=== PATIENT | male | born 1930 | race Caucasian/White ===

== ENCOUNTER 2018-02-09 11:20 | Emergency (ER) | payer OTHER, MEDICARE ==
[~2018-02-09] VITALS: Ht 170.2 cm; Wt 64.8 kg
[~2018-02-09 11:20] MED LIST: OMEPRAZOLE40 MG PO; SIMVASTATIN5 MG PO
[2018-02-09 11:56] LABS: HEMATOCRIT 37.3 % (38.0-50.0); HEMOGLOBIN 12.6 G/DL (12.5-16.6); MCH 30.2 PG (29.0-34.0); MCHC 33.8 G/DL (30.0-36.0); MCV 89.4 FL (86-99); PLATELET COUNT 363 K/uL (156-360); RBC DIS.WIDTH-CV 13.4 % (11.8-14.6); RBC DIS.WIDTH-SD 44.1 % (39-53); RED BLOOD COUNT 4.17 M/uL (4.00-5.50); WHITE BLOOD COUNT 10.9 K/uL (4.1-10.2)
[2018-02-09 12:45] LABS: TROP-I INTERPRETATION NEGATIVE; TROPONIN-I < 0.01 ng/mL (0.0-0.30)
[2018-02-09 12:59] LABS: CHLORIDE 103 MEQ/L (99-109); CREATININE 0.8 MG/DL (0.6-1.3); GFR ESTIMATE (CALCULATED) > 59 mL/min/ (58.99-99999); GLUCOSE 107 mg/dL (70-99); POTASSIUM 3.3 MEQ/L (3.7-5.4); SODIUM 142 MEQ/L (136-147); UREA NITROGEN (BUN) 18 mg/dL (9-23)
[2018-02-09 16:05] LABS: APPEARANCE SL.HAZY ((CLEAR)); BILIRUBIN NEGATIVE; BLOOD NEGATIVE; COLOR YELLOW ((YELLOW)); GLUCOSE (STRIP) NEGATIVE; KETONES 5; LEUKOCYTES NEGATIVE; NITRITE NEGATIVE; PROTEIN (STRIP) NEGATIVE; SPECIFIC GRAVITY 1.021 (1.000-1.030)
[2018-02-09 16:46] LABS: BACTERIA RARE /HPF; EPITHELIAL CELLS NONE SEEN /HPF; MUCUS 3+ /LPF; RED BLOOD CELLS NONE SEEN /HPF (0-5); UCUL ADDED? NO; WHITE BLOOD CELLS NONE SEEN /HPF (0-5)
[2018-02-09] MEDS ORDERED: TRAZODONE HCL50 MG PO (19:43)
[2018-02-09] MEDS ORDERED: VITAMIN C1000 MG PO (19:44)
[2018-02-09] MEDS ORDERED: HYDROCHLOROTHIA25 MG PO (19:44)
[2018-02-09] MEDS ORDERED: VITAMIN D31000 UNIT PO (19:44)
[2018-02-09] MEDS ORDERED: ARICEPT10 MG PO (19:44)
[2018-02-09] MEDS ORDERED: FISH OIL 1,0001 EAC7 PO (19:44)
[2018-02-09 20:29] VITALS: BP 152/71
== END 2018-02-09 17:50 ==
LOC: EME 11:20
PROVIDERS: Physician Assistant
DX: R41.82 Altered mental status, unspecified (principal); M79.605 Pain in left leg; M25.552 Pain in left hip; M25.562 Pain in left knee; M25.462 Effusion, left knee; S09.90XA Unspecified injury of head, initial encounter; R07.9 Chest pain, unspecified; W19.XXXA Unspecified fall, initial encounter; F03.90 Unspecified dementia, unspecified severity, without behavioral disturbance, psychotic disturbance, mood disturbance, and anxiety; R00.1 Bradycardia, unspecified; M47.892 Other spondylosis, cervical region; J98.11 Atelectasis; E78.5 Hyperlipidemia, unspecified
CPT/HCPCS: 70450; 71046; 72125; 72170; 73564; 80048; 81003; 84484; 85027; 93005; 99281; 99284; J2060